=== PATIENT | male | born 1965 | race Caucasian/White ===

== ENCOUNTER 2018-09-02 11:22 | Inpatient (IN) | payer BC ==
[~2018-09-02] VITALS: Ht 172.7 cm; Wt 102.5 kg
[~2018-09-02 11:22] MED LIST: [UNRECOGNIZED DRUG - OTHER]
[2018-09-02] MEDS ORDERED: KETOROLAC TROMETHAMINE 30 MG/ML VIAL IV STA (11:45)
[2018-09-02 12:11] LABS: BASOPHILS % 0.2 % (0.0-1.0); EOSINOPHILS # (AUTO) 0.1 (0.0-0.4); EOSINOPHILS % 0.4 % (0.0-6.0); HEMATOCRIT 41.5 % (38.2-49.6); HEMOGLOBIN 14.2 g/dL (14.0-18.0); LYMPHOCYTES # (AUTO) 1.6 (1.0-3.2); LYMPHOCYTES % 13.3 % (18.0-39.1); MEAN CORPUSCULAR HEMOGLOBIN 31.8 pg (28-32); MEAN CORPUSCULAR HGB CONC 34.2 g/dL (31-35); MONOCYTES # (AUTO) 1.1 (0.2-0.8); MONOCYTES % 9.3 % (4.4-11.3); NEUTROPHILS # (AUTO) 9.1 (2.1-6.9); NEUTROPHILS % 76.5 % (38.7-80.0); PLATELET COUNT 230 x10e3/uL (140-360); RED BLOOD COUNT 4.46 x10e6/uL (4.3-5.7); RED CELL DISTRIBUTION WIDTH 12.5 % (11.7-14.4)
[2018-09-02 12:14] LABS: CLARITY,URINE SL CLOUDY (CLEAR); COLOR,URINE YELLOW (YELLOW); LEUKOCYTE ESTERASE ,URINE TRACE (NEGATIVE)
[2018-09-02 12:15] LABS: BILIRUBIN,URINE NEGATIVE (NEGATIVE); KETONES,URINE NEGATIVE (NEGATIVE); NITRITE,URINE NEGATIVE (NEGATIVE); PROTEIN,URINE DIPSTICK NEGATIVE (NEGATIVE); URINE UROBILINOGEN 0.2 mg/dL (0.2 - 1)
[2018-09-02 12:24] LABS: RBC,URINE 21-50 /HPF (0-5); WBC,URINE (MAN) 21-50 /HPF (0-5)
[2018-09-02 12:25] LABS: BACTERIA,URINE FEW /HPF; EPITHELIAL CELLS,URINE FEW /LPF
[2018-09-02 12:30] LABS: ANION GAP 11.8 mmol/L (8-16); CALCIUM 9.4 mg/dL (8.4-10.2); CREATININE, SERUM 1.44 mg/dL (0.72-1.25); POTASSIUM 3.8 mmol/L (3.5-5.1)
--- NOTE | 2018-09-02 13:17 | Diagnostic Imaging Report ---
EXAM: CT Abdomen and Pelvis without contrast INDICATION: Right flank pain, history of renal stones. COMPARISON: KUB 07/11/2010. TECHNIQUE: Abdomen and pelvis were scanned utilizing a multidetector helical scanner from the lung base to the pubic symphysis without IV or oral contrast. Coronal and sagittal reformations were obtained. Renal stone protocol was performed. COMPLICATIONS: None RADIATION DOSE: Total DLP: 702.4 mGy*cm Dose modulation, iterative reconstruction, and/or weight based adjustment of the mA/kV was utilized to reduce the radiation dose to as low as reasonably achievable. FINDINGS: LINES and TUBES: None. LOWER THORAX: There is a 4 mm calcified granuloma in the left lower lobe. Calcified left pericardiac lymph node. HEPATOBILIARY: No evidence of focal lesion. No biliary ductal dilation. GALLBLADDER: No radio-opaque stones or sludge. No wall thickening. SPLEEN: No splenomegaly. Calcified splenic granulomas. PANCREAS: No focal masses or ductal dilatation. ADRENALS: No adrenal nodules KIDNEYS/URETERS: There is moderate right hydronephrosis and hydroureter with an associated 7.5 mm right UVJ stone. Multiple other bilateral nonobstructing renal stones, for example, a 4 mm right mid pole stone on series 3, image 64, a 4 mm left mid pole renal stone on image 63, and a 4 mm left lower pole stone on image 75. There is perinephric stranding on the right. No left hydronephrosis. GI TRACT: No evidence of wall thickening or distension. Appendix is normal. PELVIC ORGANS/BLADDER: The bladder is partially decompressed and mildly thick-walled. Calcifications within the prostate. LYMPH NODES: No lymphadenopathy. VESSELS: Scattered minimal atherosclerotic calcifications. PERITONEUM / RETROPERITONEUM: No free air or fluid. BONES AND SOFT TISSUES: Bilateral L5 pars defects. Mild degenerative disc changes of the lumbar spine. Right-sided fat-containing inguinal hernia. CONCLUSION: Obstructing 7.5 mm right UVJ stone with associated moderate right hydronephrosis and hydroureter. Multiple other bilateral nonobstructing renal stones. Right perinephric stranding. Mildly thick-walled bladder may reflect partial decompression or may be infectious in etiology. Suggest correlation with urinalysis. Signed by: Dr. Jim Read MD on 09/02/2018 1:13 PM
[2018-09-02] MEDS: CEFTRIAXONE SOD 1 GM/NS 50 ML 50 ML IV SCH (14:31)
[2018-09-02] MEDS ORDERED: ONDANSETRON HCL INJ 2MG/ML 2ML 2 MG/ML VIAL IV PRN (15:15)
[2018-09-02] MEDS ORDERED: HYDROMORPHONE 1MG/1ML INJ IV PRN (15:15)
[2018-09-02] MEDS ORDERED: HYDROMORPHONE 2MG/ML 2 MG/ML ML IV PRN (15:30)
--- OUTSIDE RECORDS SUMMARY | 2018-09-02 15:36 | XMS REPORT ---
Author Author [facility] Address Unknown Phone Unavailable Care Team Providers Care Summer Analyst Name Role Phone Sita LOPEZ Unavailable Unavailable Problems This patient has no known problems. Allergies, Adverse Reactions, Alerts This patient has no known allergies or adverse reactions. Medications This patient has no known medications. Results Test Description Test Time Test Comments Text Results Atomic Results Result Comments CT ABDOMEN/PELVIS WO 2018-09-02 12:59:00 [place] [address] Patient Name: PAULO HOGAN MR #: [id number] : 1965 Age/Sex: 53/M Req #: [id number] Adm Physician: Ordered by: MEKA LOPEZ MD Report #: [id number] Location: ER Room/Bed: Procedure: [id number] CT/CT ABDOMEN/PELVIS WO Exam Date: 09/02/18 Exam Time: 1220 REPORT STATUS: Signed EXAM: CT Abdomen and Pelvis without contrast IN DICATION: Right flank pain, history of renal stones. COMPARISON: KUB 07/11/2010. TECHNIQUE: Abdomen and pelvis were scanned utilizing a multidetector helical scanner from the lung base to the pubic symphysis without IV or oral contrast. Coronal and sagittal reformations were obtained. Renal stone protocol was performed. COMPLICATIONS: None RADIATION DOSE: Total DLP: 702.4 mGy*cm Dose modulation, iterative reconstruction, and/or weight based adjustment of the mA/kV was utilized to reduce the radiation dose to as low as reasonably achievable. FINDINGS: LINES and TUBES: None. LOWER THORAX: There is a 4 mm calcified granuloma in the left lower lobe. Calcified left pericardiac lymph node. HEPATOBILIARY: No evidence of focal lesion. No biliary ductal dilation. GALLBLADDER: No radio-opaque stones or sludge. No wall thickening. SPLEEN: No splenomegaly. Calcified splenic granulomas. PANCREAS: No focal masses or ductal dilatation. ADRENALS: No adrenal nodules KIDNEYS/URETERS: There is moderate right hydronephrosis and hydroureter with an associated 7.5 mm right UVJ stone. Multiple other bilateral nonobstructing renal stones, for example, a 4 mm right mid pole stone on series 3, image 64, a 4 mm left mid pole renal stone on image 63, and a 4 mm left lower pole stone on image 75. There is perinephric stranding on the right. No left hydronephrosis. GI TRACT: No evidence of wall thickening or distension. Appendix is normal. PELVIC ORGANS/BLADDER: The bladder is partially decompressed and mildly thick- walled. Calcifications within the prostate. LYMPH NODES: No lymphadenopathy. VESSELS: Scattered minimal atherosclerotic calcifications. PERITONEUM / RETROPERITONEUM: No free air or fluid. BONES AND SOFT TISSUES: Bilateral L5 pars defects. Mild degenerative disc changes of the lumbar spine. Right-sided fat-containing inguinal hernia. CONCLUSION: Obstructing 7.5 mm right UVJ stone with associated moderate right hydronephrosis and hydroureter. Multiple other bilateral nonobstructing renal stones. Right perinephric stranding. Mildly thick-walled bladder may reflect partial decompression or may be infectious in etiology. Suggest correlation with urinalysis. Signed by: Dr. Dorina Yeh MD on 09/02/2018 1:13 PM Dictated By: DORINA YEH MD [id number] Transcribed By: CATRACHO on 09/02/18 1313 COPY TO: MEKA LOPEZ MD
--- NOTE | 2018-09-02 16:15 | NUR ---
RECD PT FROM ER VIA W/C AAOX3,DENIES PAIN AT THIS TIME,IVF INFUSING TO RT AC 20 GAUGE,HOB ELEVATED.CALL SHAH IN REACH.
[2018-09-02 16:34] VITALS: BP 165/84
[2018-09-02 16:52] VITALS: BP 165/84
[2018-09-02] MEDS ORDERED: ACETAMINOPHEN 325 MG TAB PO PRN (17:15)
[2018-09-02] MEDS ORDERED: DOCUSATE SODIUM 100 MG CAP PO PRN (17:15)
--- NOTE | 2018-09-02 17:15 | NUR ---
DR ARRIAZA HERE, ORDERS WRITTEN
--- NOTE | 2018-09-02 18:20 | NUR ---
PT UP IN BED DENIES PAIN NO DISTRESS NOTED,IVF INFUSING
--- NOTE | 2018-09-02 19:00 | NUR ---
Report and rounds completed. Patient in bed. Call light within reach. No issues or concerns. at bedside. Will continue to monitor.
--- NOTE | 2018-09-02 19:21 | Diagnostic Imaging Report ---
EXAMINATION: CHEST 2 VIEWS INDICATION: ^cough COMPARISON: None FINDINGS: PA and lateral views TUBES and LINES: None. LUNGS: Lungs are well inflated. Lungs are clear. There is no evidence of pneumonia or pulmonary edema. PLEURA: No pleural effusion or pneumothorax. HEART AND MEDIASTINUM: The cardiomediastinal silhouette is unremarkable. BONES AND SOFT TISSUES: No acute osseous lesion. Soft tissues are unremarkable. UPPER ABDOMEN: No free air under the diaphragm. IMPRESSION: No acute thoracic abnormality. Signed by: Dr. Sukhwinder Goff M.D. on 09/02/2018 7:18 PM
[2018-09-02 19:47] VITALS: BP 136/74
[2018-09-02 20:00] VITALS: BP 136/74
[2018-09-02] MEDS: METOPROLOL SUCCINATE 25 MG TAB XL PO SCH (21:45)
[2018-09-02] MEDS: SODIUM CHLORIDE 0.9% 1000ML 1,000 ML IV SCH ×2 (21:45→23:14)
[2018-09-02] MEDS: TAMSULOSIN HCL 0.4 MG CAP PO SCH (21:45)
[2018-09-02] MEDS: IBUPROFEN 400 MG TAB PO SCH (21:46)
[2018-09-02] MEDS ORDERED: ZOLOFT50 MG PO (21:57)
[2018-09-02] MEDS ORDERED: COUMADIN5 MG PO (21:57)
[2018-09-02] MEDS ORDERED: IMODIUM2 MG PO (21:57)
[2018-09-02] MEDS ORDERED: SPIRONOLACTONE25 MG PO (21:57)
[2018-09-02] MEDS ORDERED: BENADRYL25 M1 PO (21:57)
[2018-09-02] MEDS ORDERED: LASIX20 MG PO (21:57)
[2018-09-02] MEDS ORDERED: WARFARIN SODIUM3 MG PO (21:57)
[2018-09-02] MEDS ORDERED: NYSTATIN1 EAC2 TOP (21:57)
[2018-09-02] MEDS ORDERED: HYDROCORTISONE30 GM TOP (21:57)
[2018-09-02] MEDS ORDERED: CRANBERRY250 MG PO (21:57)
[2018-09-02] MEDS ORDERED: IBUPROFEN 200 MG TAB PO SCH (22:00)
--- NOTE | 2018-09-02 22:25 | NUR ---
Dr Fernandez contacted regarding Toprol xl, new orders received.
[2018-09-02 22:41] VITALS: BP 125/78
--- NOTE | 2018-09-02 22:41 | NUR ---
Tele placed on patient: SR 60. V/S 125/78, 61. Will continue to monitor.
[2018-09-02 23:55] VITALS: BP 137/69
[2018-09-03] VITALS (7 sets, daily range): BP systolic 131–141; BP diastolic 68–78
--- NOTE | 2018-09-03 | Consultation ---
DATE OF CONSULTATION: 09/02/2018 Urology Consultation REASON FOR CONSULTATION: Renal colic. HISTORY OF PRESENT ILLNESS: Dale Wayne is a 53-year-old man with a previous history of urolithiasis. The patient has had a previous stone in the past. He underwent what sounds like some sort of procedure that involved having some sort of pocket and he was told the stone should never recur once that was managed. He had a stent, which was eventually removed. He does not recall the hospital nor the urologist, who did that procedure, but apparently followup was not stressed to the patient. The patient has severe right-sided flank pain radiating to the right lower quadrant. Denies hematuria, dysuria, urinary tract infection. Denies any urinary incontinence. He reports nocturia x1. The patient's pain got severe enough that he reported to the emergency room and was evaluated and found to have obstructive ureterolithiasis and urological consultation was sought. PAST MEDICAL AND SURGICAL HISTORY: 1. Status post bilateral knee scopes. 2. Status post tonsillectomy. 3. Surgery as mentioned above. 4. Borderline hypercholesterolemia. ALLERGIES: NONE KNOWN. CURRENT MEDICATIONS: Please refer to the MAR. SOCIAL HISTORY: The patient smokes cigars once in a while. Denies smoking cigarettes. 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 FAMILY HISTORY: Noncontributory to the active urological problems. REVIEW OF SYSTEMS: Consistent with history of present illness and past medical history, otherwise negative for all systems. PHYSICAL EXAMINATION: GENERAL: A very pleasant 53-year-old man, sitting up in bed, in no apparent distress, enjoying the meal that was provided for him. The patient is currently afebrile. VITAL SIGNS: Currently stable. ABDOMEN: Soft, nondistended, nontender, except for some mild right-sided costovertebral angle tenderness. Kidneys are not palpable without hepatosplenomegaly. The patient is obese. GENITOURINARY: Testes are descended bilaterally. Testes and epididymides bilaterally palpably normal. The patient has a normal uncircumcised male phallus with normal meatus without any lesion. Digital rectal examination is deferred at the present time. For the remaining physical examination systems, please refer to the admission history and physical as well as the ERT sheet. LABORATORY STUDIES: CT scan of the abdomen and pelvis revealed a 7.5 mm at the right UVJ stone with right hydroureteronephrosis. There were multiple stones present bilaterally. Bladder wall was partially thick. Urine culture is pending. White blood cell count is elevated at 11,880. The patient's creatinine is elevated at 1.44. Urinalysis significant for microhematuria and pyuria. ASSESSMENT: 1. Right renal colic. 2. Right ureterolithiasis. 3. Bilateral nephrolithiasis. 4. Nocturia x1. 5. Right hydroureteronephrosis. 6. History of prior urolithiasis. 7. Obesity. 8. Leukocytosis. 9. Presumably acute renal failure. 10. Microhematuria. 11. Pyuria. PLANS: 1. IV hydration. 2. IV analgesia. 3. Intravenous antibiotics. 4. Straining of the urine at all times. 5. We will order KUB for the morning to see if the patient is passing a stone. 6. Should the patient fail to pass his stone, surgical intervention may be warranted. Thank you very much for involving us in the care of your patient. We will be happy to follow him along with you as well as an outpatient. Curtis MD Agnes OH/MODL /[id number] cc: Beti Weston MD
--- NOTE | 2018-09-03 00:15 | History and Physical ---
PRESENTING COMPLAINT: Intractable pain in the right flank off and on for the last 4 days, got worsened today along with dysuria. HISTORY OF PRESENT ILLNESS: A 53-year-old male, was admitted from ER. The patient was sent to ER from the office of his PCP, Dr. Juan David Hilliard. The patient tells that he started mild pain about his right flank area off and on since 4 days ago. Pain went away. Next day, he took some OTC Azo and along with enough fluid. His pain reoccurred day after the onset, also was controlled. About weekend, he felt okay. He went to the work today and started pain again. Pain was intractable. He had also dysuria along with this pain off and on. He denied any pressure bladder with urination. The patient had history of nephrolithiasis with hydronephrosis in 2010 when he had cystoscopy by Dr. Alarcon as per the patient's statement. He denies similar episodes since then. The patient also denied any fever, chest pain, shortness of breath, palpitation, and nausea, vomiting and diarrhea other than rectal bleeding at the present time. He tells that he was taking ibuprofen for his left knee sprain 3 weeks ago. He was not on any regular medications. He denied any history of diabetes, hypertension, or CAD. The patient described his right flank pain as dull, aching, persistent 10/10 at the height of intensity, localized without any radiation. REVIEW OF SYSTEMS: CONSTITUTIONAL: No fevers, chills, or rigors. EYES AND ENT: No nasal congestion. No sore throat. No visual disturbance. No earache. CARDIOVASCULAR: No chest pain, shortness of breath, or palpitation. PULMONARY: No cough. No hemoptysis. GI: Right flank pain as per HPI. No nausea or vomiting. No episode of bloody stool or black stool. : Dysuria as per HPI. No hematuria. MUSCULOSKELETAL/SKIN/LYMPHORETICULAR: Left knee pain status post sprain in the recent past, pain controlled now. No joint swelling. No skin rash. No swollen glands. NEUROLOGIC: No loss of consciousness, seizures, or headache. HISTORY OF PAST MEDICAL ILLNESS: Nephrolithiasis with hydronephrosis and hydroureter in 2010, status post cystoscopy as per the patient's statement. No history of hypertension, diabetes, CAD as per the patient's statement. HISTORY OF PAST SURGERY: Bilateral knee arthroscopic surgery for osteoarthritis. No other history of surgery. ALLERGIES: NO KNOWN MEDICATION ALLERGIES. HOME MEDICATIONS: The patient was not on any regular medication. He took [id number] ibuprofen and Azo recently for pain and dysuria as per the HPI. SOCIAL HISTORY: The patient lives at home with his family. He works with [employer] . HABITS: The patient denies smoking or other substance abuse history. He drinks alcohol socially as per his statement. FAMILY HISTORY: The patient's father is alive. He was recently diagnosed with lung cancer as per the patient's statement. The patient's mother is alive and healthy. His siblings does not have any history of CAD or nephrolithiasis. PHYSICAL EXAMINATION: VITAL SIGNS: Today, blood pressure 135/87, pulse 57, temperature 97.7, respirations 16, SPO2 99% on room air. GENERAL: Alert, lying in bed without any acute distress. Now pain controlled after medication. HEENT: NC/AT. No pallor. No icterus. Pupils equally reacting. Oral mucosa moist. NECK: No JVD. No carotid bruit. No lymphadenopathy. No thyromegaly. HEART: S1 and S2, regular. No murmur. LUNGS: Clear to auscultation. ABDOMEN: Soft, nontender. No palpable masses. Bowel sounds active in all quadrants. EXTREMITIES: No edema, cyanosis, or clubbing. NEUROLOGIC: Motor grossly equal on both sides. LABORATORY DATA: CBC, WBC 11.88, hemoglobin 14, hematocrit 41, platelet 230, MCV 93, RDW 12, neutrophil 76, lymphocytes 13. Chemistry panel sodium 137, potassium 3.8, chloride 104, CO2 of 25, anion gap 8, BUN 19, creatinine 1.44, glucose 91, calcium 9.4. Urinalysis negative for protein, glucose, ketone, blood 2+, nitrite negative, leukocyte esterase trace, wbc 21 to 50, rbc 21 to 50. MICROBIOLOGICAL DATA: Urine culture in progress. RADIOLOGICAL DATA: CT of the abdomen and pelvis with renal stone protocol without contrast, obstructive 7.5 mm right UPJ stone with associated moderate right hydronephrosis and hydroureter, mild [QAMARKER bladder may reflect partial decompression and may be infectious in etiology suggest previous infection. EKG, pending. ASSESSMENT AND PLAN: 1. Right flank pain with dysuria due to right ureteric stone with hydronephrosis. Continue IV hydration, IV antibiotics. Follow the urine culture. Nephrology consult is requested with Dr. Alarcon from ER, would follow his recommendation. 2. Leukocytosis. The patient is afebrile likely due to his urinary tract infection. He has CT suggestive of right perinephric stranding. Continue the patient on IV antibiotic. Follow the blood culture also. 3. Microscopic hematuria due to nephrolithiasis and ureterolithiasis. I would monitor for now. Continue IV antibiotics. Follow Urology recommendation. 4. Osteoarthritis by history. We will continue the patient on his regular medication. 5. DVT prophylaxis, SCD for now. GI prophylaxis, keep the patient on Pepcid IV for now. 6. Discharge plan would depend upon the patient's hospital course and Urology recommendation. MD SHELBI Hughes/ZONIA /[id number] TALHA
[2018-09-03] MEDS: IBUPROFEN 400 MG TAB PO SCH ×3 (05:00→21:34)
[2018-09-03 05:49] LABS: BASOPHILS % 0.1 % (0.0-1.0); EOSINOPHILS # (AUTO) 0.1 (0.0-0.4); EOSINOPHILS % 1.2 % (0.0-6.0); HEMATOCRIT 37.6 % (38.2-49.6); HEMOGLOBIN 13.4 g/dL (14.0-18.0); LYMPHOCYTES # (AUTO) 1.2 (1.0-3.2); MEAN CORPUSCULAR HEMOGLOBIN 32.4 pg (28-32); MEAN CORPUSCULAR HGB CONC 35.6 g/dL (31-35); MEAN CORPUSCULAR VOLUME 90.8 fL (81-99); MONOCYTES # (AUTO) 1.2 (0.2-0.8); MONOCYTES % 13.8 % (4.4-11.3); NEUTROPHILS % 70.5 % (38.7-80.0); PLATELET COUNT 199 x10e3/uL (140-360); RED BLOOD COUNT 4.14 x10e6/uL (4.3-5.7); RED CELL DISTRIBUTION WIDTH 12.6 % (11.7-14.4)
[2018-09-03 05:59] LABS: INR 0.93
--- NOTE | 2018-09-03 06:00 | NUR ---
Patient resting in bed, call light within reach. No issues or concerns. Will continue to monitor.
[2018-09-03 06:06] LABS: ALBUMIN 3.3 g/dL (3.5-5.0); ALBUMIN/GLOBULIN RATIO 1.3 (0.8-2.0); ANION GAP 7.9 mmol/L (8-16); CALCIUM 8.7 mg/dL (8.4-10.2); CREATININE, SERUM 1.73 mg/dL (0.72-1.25); MAGNESIUM 1.9 MG/DL (1.3-2.1); PHOSPHORUS 3.2 MG/DL (2.3-4.7); POTASSIUM 3.9 mmol/L (3.5-5.1)
[2018-09-03 06:29] LABS: THYROID STIMULATING HORMONE 3.507 uIU/mL (0.350-4.940)
--- NOTE | 2018-09-03 07:00 | NUR ---
RECEIVED AM REPORT FROM NURSE, PT WAS AWAKE IN BED, NO S/S OF DISTRESS. IV FLUIDS RUNNING AT R AC 20G
--- NOTE | 2018-09-03 08:04 | Diagnostic Imaging Report ---
EXAM: Abdomen 1 Views INDICATION: ^FOLLOW UP STONE. NOT PORTABLE. COMPARE TO CT. COMPARISON: CT abdomen and pelvis 09/02/2018. FINDINGS: Moderate amount of stool in the colon. No dilated loops of small bowel. Small bilateral renal stones remain present. 10 mm stone remains at the right UVJ junction. No abnormal soft tissue masses. Mild degenerative changes in the lumbar spine and pelvis. IMPRESSION: 1. Small bilateral renal stones remain present. 2. 10 mm stone remains at the right UVJ junction. Signed by: Dr. Sukhwinder Goff M.D. on 09/03/2018 8:00 AM
[2018-09-03] MEDS: SODIUM CHLORIDE 0.9% 1000ML 1,000 ML IV SCH ×2 (08:30→15:14)
[2018-09-03] MEDS: FAMOTIDINE 20 MG TAB PO SCH ×2 (08:55→15:40)
[2018-09-03] MEDS: METOPROLOL SUCCINATE 25 MG TAB XL PO SCH ×2 (08:56→21:33)
[2018-09-03] MEDS: CEFTRIAXONE SOD 1 GM/NS 50 ML 50 ML IV SCH (13:15)
--- NOTE | 2018-09-03 15:25 | NUR ---
Visit made by the Spiritual Care Department Pastoral Visitor, Wendy Miranda. PV provided pastoral presence, prayer, hospitality, and supportive listening. Pastoral Visitor informed pt/family of the scope of [facility] and availability. BRANDY DUKES Tape Edge Machine Operator Spiritual Care Department O: [phone] Pager: [phone] ([phone] calling from)
[2018-09-03] MEDS ORDERED: ONDANSETRON HCL 4 MG ORAL DISINTEGRATING TAB PO PRN (17:00)
--- NOTE | 2018-09-03 19:27 | NUR ---
Received patient in report. Patient ambulating around room at this time, steady gait noted. No pain reported. No S&S of distress noted at this time. Call light in reach.
[2018-09-03] MEDS: TAMSULOSIN HCL 0.4 MG CAP PO SCH (21:33)
[2018-09-04] VITALS (8 sets, daily range): BP systolic 120–154; BP diastolic 63–87
[2018-09-04] MEDS: SODIUM CHLORIDE 0.9% 1000ML 1,000 ML IV SCH ×3 (01:08→17:44)
--- NOTE | 2018-09-04 05:02 | NUR ---
PATIENT RESTING IN BED AT THIS TIME. NO PAIN REPORTED. NO S&S OF DISTRESS NOTED. REMINDED PATIENT WE STILL NEED TO STRAIN URINE. PATIENT VERBALIZED UNDERSTANDING. BED LOCKED IN LOWEST POSITION, SIDE RAILS UPX2, CALL LIGHT IN REACH.
[2018-09-04 06:06] LABS: BASOPHILS % 0.1 % (0.0-1.0); EOSINOPHILS # (AUTO) 0.1 (0.0-0.4); EOSINOPHILS % 1.8 % (0.0-6.0); HEMATOCRIT 35.6 % (38.2-49.6); HEMOGLOBIN 12.4 g/dL (14.0-18.0); LYMPHOCYTES # (AUTO) 1.3 (1.0-3.2); LYMPHOCYTES % 16.5 % (18.0-39.1); MEAN CORPUSCULAR HEMOGLOBIN 32.2 pg (28-32); MEAN CORPUSCULAR HGB CONC 34.8 g/dL (31-35); MEAN CORPUSCULAR VOLUME 92.5 fL (81-99); MONOCYTES # (AUTO) 0.9 (0.2-0.8); MONOCYTES % 12.1 % (4.4-11.3); NEUTROPHILS # (AUTO) 5.3 (2.1-6.9); NEUTROPHILS % 69.2 % (38.7-80.0); PLATELET COUNT 181 x10e3/uL (140-360); RED BLOOD COUNT 3.85 x10e6/uL (4.3-5.7); RED CELL DISTRIBUTION WIDTH 12.5 % (11.7-14.4)
[2018-09-04] MEDS: IBUPROFEN 400 MG TAB PO SCH ×3 (06:25→21:42)
[2018-09-04 06:49] LABS: ANION GAP 8.3 mmol/L (8-16); CALCIUM 8.7 mg/dL (8.4-10.2); CREATININE, SERUM 1.77 mg/dL (0.72-1.25); POTASSIUM 4.3 mmol/L (3.5-5.1)
[2018-09-04] MEDS: FAMOTIDINE 20 MG TAB PO SCH ×2 (07:30→16:10)
--- NOTE | 2018-09-04 07:40 | NUR ---
PATIENT IS AWAKE, ALERT, AND IN STABLE CONDITION WITH NO S/S OF RESPIRATORY DISTRESS. PATIENT DENIES PAIN. TELEMETRY APPLIED. PATIENT IS CURRENTLY NPO FOR PROCEDURE TODAY. CALL LIGHT IS WITHIN REACH, PATIENT INSTRUCTED TO CALL FOR ASSISTANCE NEEDED.
[2018-09-04] MEDS: METOPROLOL SUCCINATE 25 MG TAB XL PO SCH ×2 (09:00→21:27)
--- NOTE | 2018-09-04 12:26 | NUR ---
PATIENT OFF THE UNIT PER BED TO THE OR FOR CYSTOSCOPY. PATIENT IS IN STABLE CONDITION WITH NO S/S OF RESPIRATORY DISTRESS. TELEMETRY APPLIED.
[2018-09-04] MEDS ORDERED: IOPAMIDOL 610MG/1ML 300 MG/ML VIAL IV ONE (13:05)
[2018-09-04] MEDS ORDERED: BELLADONNA/OPIUM 60 MG SUPP PR ONE (13:05)
[2018-09-04] MEDS ORDERED: BELLADONNA/OPIUM 30 MG SUPP RC PRN (14:00)
[2018-09-04] MEDS ORDERED: BELLADONNA/OPIUM 60 MG SUPP PR PRN (14:00)
[2018-09-04] MEDS ORDERED: ACETAMINOPHEN/CODEINE 300MG - 30MG TAB PO PRN (14:00)
[2018-09-04] MEDS: CEFTRIAXONE SOD 1 GM/NS 50 ML 50 ML IV SCH (14:00)
--- NOTE | 2018-09-04 15:03 | NUR ---
REPORT RECEIVED FROM RECOVERY NURSE. PATIENT BACK ON THE UNIT - PATIENT IS AWAKE AND IN STABLE CONDITION WITH NO S/S OF RESPIRATORY DISTRESS. NO C/O PAIN. TELEMETRY APPLIED. CALL LIGHT IS WITHIN REACH, PATIENT INSTRUCTED TO CALL FOR ASSISTANCE NEEDED.
[2018-09-04] MEDS: OXYBUTYNIN CHLORIDE 5 MG TAB PO SCH ×2 (15:07→21:27)
[2018-09-04] MEDS: PHENAZOPYRIDINE HCL 100 MG TAB PO SCH (17:02)
[2018-09-04] MEDS ORDERED: DEXAMETHASONE SOD PHOS INJ 4 MG/ML VIAL ONE (18:13)
[2018-09-04] MEDS ORDERED: SEVOFLURANE INHAL SOLN 250 ML PEN BTL ONE (18:13)
[2018-09-04] MEDS ORDERED: ONDANSETRON HCL INJ 2MG/ML 2ML 2 MG/ML VIAL ONE (18:13)
[2018-09-04] MEDS ORDERED: LIDOCAINE HCL 2% LOCAL INJ 5 ML SDV VIAL INJ ONE (18:13)
[2018-09-04] MEDS ORDERED: PROPOFOL IV EMULSION 10 MG/ML 20 ML VIAL ONE (18:13)
--- NOTE | 2018-09-04 19:32 | NUR ---
PATIENT IS IN STABLE CONDITION WITH NO S/S OF RESPIRATORY DISTRESS. TELEMETRY APPLIED. CALL LIGHT IS WITHIN REACH, PATIENT INSTRUCTED TO CALL FOR ASSISTANCE NEEDED. BEDSIDE REPORT GIVEN TO ONCOMING NURSE.
--- NOTE | 2018-09-04 19:59 | NUR ---
PT IS RESTING IN BED. NO RESPIRATORY DISTRESS NOTED. BED IN THE LOWEST POSITION, LOCKED, AND CALL LIGHT WITHIN REACH. WILL CONTINUE TO MONITOR.
[2018-09-04] MEDS: TAMSULOSIN HCL 0.4 MG CAP PO SCH (21:27)
[2018-09-05] VITALS: BP 114/67
[2018-09-05] MEDS: SODIUM CHLORIDE 0.9% 1000ML 1,000 ML IV SCH ×2 (02:21→07:14)
[2018-09-05 04:00] VITALS: BP 131/65
[2018-09-05] MEDS: IBUPROFEN 400 MG TAB PO SCH (06:00)
[2018-09-05 06:12] LABS: BASOPHILS % 0.3 % (0.0-1.0); EOSINOPHILS # (AUTO) 0.1 (0.0-0.4); EOSINOPHILS % 2.1 % (0.0-6.0); HEMATOCRIT 34.7 % (38.2-49.6); HEMOGLOBIN 11.8 g/dL (14.0-18.0); LYMPHOCYTES # (AUTO) 1.7 (1.0-3.2); MEAN CORPUSCULAR HEMOGLOBIN 32.2 pg (28-32); MEAN CORPUSCULAR VOLUME 94.8 fL (81-99); MONOCYTES # (AUTO) 0.6 (0.2-0.8); MONOCYTES % 10.2 % (4.4-11.3); NEUTROPHILS # (AUTO) 3.3 (2.1-6.9); NEUTROPHILS % 57.1 % (38.7-80.0); PLATELET COUNT 189 x10e3/uL (140-360); RED BLOOD COUNT 3.66 x10e6/uL (4.3-5.7); RED CELL DISTRIBUTION WIDTH 12.8 % (11.7-14.4)
[2018-09-05 06:21] LABS: ALBUMIN/GLOBULIN RATIO 1.3 (0.8-2.0); ANION GAP 8.6 mmol/L (8-16); CALCIUM 8.8 mg/dL (8.4-10.2); CREATININE, SERUM 1.45 mg/dL (0.72-1.25); POTASSIUM 4.6 mmol/L (3.5-5.1)
[2018-09-05] MEDS: FAMOTIDINE 20 MG TAB PO SCH (07:30)
--- NOTE | 2018-09-05 07:51 | NUR ---
PATIENT IS AWAKE, AMBULATING IN HIS ROOM, AND IS IN STABLE CONDITION WITH NO S/S OF RESPIRATORY DISTRESS. NO PAIN VOICED. IV FLUIDS INFUSING. CALL LIGHT IS WITHIN REACH, PATIENT INSTRUCTED TO CALL FOR ASSISTANCE NEEDED.
[2018-09-05 07:52] VITALS: BP 140/60
[2018-09-05] MEDS: OXYBUTYNIN CHLORIDE 5 MG TAB PO SCH (08:27)
[2018-09-05] MEDS: PHENAZOPYRIDINE HCL 100 MG TAB PO SCH (08:27)
[2018-09-05] MEDS: METOPROLOL SUCCINATE 25 MG TAB XL PO SCH (09:00)
[2018-09-05 09:18] VITALS: BP 140/60
[2018-09-05 11:38] VITALS: BP 134/71
--- NOTE | 2018-09-05 12:59 | NUR ---
DR. NAGEL PAGED REGARDING D/C ORDER- AWAITING CALLBACK.
[2018-09-05] MEDS ORDERED: TYLENOL WITH C1 EACH PO (13:17)
[2018-09-05] MEDS ORDERED: DITROPAN XL5 MG PO (13:18)
[2018-09-05] MEDS ORDERED: PYRIDIUM100 MG (13:55)
[2018-09-05] MEDS ORDERED: FLOMAX0.4 MG PO (13:56)
[2018-09-05] MEDS ORDERED: COLACE100 MG PO (13:56)
--- NOTE | 2018-09-05 14:19 | NUR ---
PATIENT DISCHARGE HOME- PATIENT OFF THE UNIT AT 1418 PER AMBULATION ACCOMPANIED BY PCT TO THE FRONT OF THE LOBBY. PATIENT IS IN STABLE CONDITION WITH NO S/S OF RESPIRATORY DISTRESS. NO PAIN VOICED. IV REMOVED WITH TIP INTACT. DISCHARGE TEACHING, INSTRUCTIONS, AND MEDICATIONS GIVEN TO THE PATIENT. ALL PERSONAL ITEMS TAKEN WITH THE PATIENT.
[2018-09-05] MEDS ORDERED: MIDAZOLAM HCL 2 MG/2 ML VIAL ONE (18:48)
[2018-09-05] MEDS ORDERED: FENTANYL CITRATE/PF 100MCG/2 ML INJ ONE (18:48)
--- NOTE | 2018-09-11 15:24 | Discharge Summary ---
CONSULTATION: By Dr. Curtis Alarcon. PROCEDURE: Cystoscopy and stent placement in right ureter by Dr. Alarcon on 09/04/2018. FINAL DIAGNOSIS: Right flank pain with microscopic hematuria due to right ureteric stone with hydronephrosis, status post cystoscopy and stent placement during this hospitalization. OTHER DIAGNOSES: 1. Leukocytosis, resolved. 2. Microscopic hematuria due to ureteric stone. 3. Bilateral nephrolithiasis. 4. Osteoarthritis by history. 5. High blood pressure, normalized. BRIEF HOSPITAL COURSE: A 53-year-old male was admitted from ER. The patient was sent to ER from the office of Dr. Juan David Hilliard, the patient's PCP. The patient had right flank pain off and on for few days. On that day of admission, he felt severe pain while he was at work. He went to see Dr. Hilliard. In his office, he was referred to the ER. The patient was found having right ureteric stone with hydronephrosis. Dr. Alarcon, urologist was consulted. The patient had similar episode more than [address] Alarcon treated the patient medically. He did not have any improvement. His stone was still persisting at the right ureterovesical junction on repeat x-ray. Dr. Alarcon offered the patient cystoscopy, which was done. He put a stent in his right ureter. The patient tolerated the procedure well. He was otherwise uneventful. The patient was found having mild high blood pressure, which got normalized. The patient was not taking any blood pressure medication. He was otherwise was uneventful. The patient was discharged home with the instruction to follow up with urologist. He was hemodynamically stable at discharge. PHYSICAL EXAMINATION: VITAL SIGNS: BP 134/71, pulse 55, temperature 96.6, respiration 18, and SpO2 98 at room air. GENERAL: Alert, not in acute distress. HEENT: NC/AT. No pallor. No icterus. Oral mucosa moist. NECK: No JVD. No carotid bruit. No lymphadenopathy. No thyromegaly. HEART: S1 and S2. Regular. No murmur. LUNGS: Clear to auscultation. ABDOMEN: Soft and nontender. No palpable masses. Bowel sounds active in all quadrants. EXTREMITIES: No edema or cyanosis. NEUROLOGIC: Motor grossly equal on both sides. LABORATORY DATA: CBC; WBC 5.76, hemoglobin 11, hematocrit 34, platelet 189, MCV 94, RDW 12, neutrophils 57, and lymphocytes 30. PT 13 and INR 0.93. Chemistry panel; sodium 140, potassium 4.6, chloride 112, CO2 24, anion gap 4, BUN 22, creatinine 1.45, glucose 103, uric acid 5.7, calcium 8.8, phosphorus 3.2, and magnesium 1.9. Total bilirubin 0.3, AST 15, ALT 17, and alkaline phosphatase 40. Total protein 5.3, albumin 2.0, globulin 2.3, TSH 3.50, parathyroid hormone 19, PT 13, INR 0.93. Urinalysis at presentation negative for protein, glucose, ketone, nitrite, blood 2+, leukocyte esterase trace, wbc 21 to 50, rbc 21 to 50. MICROBIOLOGICAL DATA: Blood culture, no growth in 5 days. Urine culture, no growth. RADIOLOGICAL DATA: CT abdomen and pelvis at presentation without contrast, obstructive 7.5 mm right UVJ stone with associated moderate right hydronephrosis and hydroureter, right perinephric stranding, mildly thick walled bladder. X-ray abdomen and KUB, small bilateral renal stones, 10 mm stone remains in right UVJ junction. X-ray chest two views, no acute abnormality. MEDICATIONS: On discharge, please refer to med reconciliation sheet. DIET: Heart-healthy diet. ACTIVITY: As tolerated. INSTRUCTION AT DISCHARGE: Continue medications as per discharge recommendation. Follow up with Dr. Alarcon as available. Follow up with PCP, Dr. Juan David Hilliard in 1 week. Repeat CBC and CMP in 1 week. Plenty fluid intake advised. MD SHELBI Hughes/MODL /[id number]
== END 2018-09-05 14:22 | disposition home or self-care (01) | DRG 660 ==
LOC: ER 11:22 → ERHOLD 15:23 → MED/SURG3 16:13
PROVIDERS: ADMIT Internal Medicine; ATTEND Internal Medicine
PROC: 0TJB8ZZ Inspection of Bladder, Via Natural or Artificial Opening Endoscopic (ICD-10-PCS; principal; 2018-09-03)
PROC: 0T788DZ Dilation of Bilateral Ureters with Intraluminal Device, Via Natural or Artificial Opening Endoscopic (ICD-10-PCS; 2018-09-03)
DX: N13.30 Unspecified hydronephrosis (principal); N20.2 Calculus of kidney with calculus of ureter; N13.4 Hydroureter; N39.0 Urinary tract infection, site not specified; N17.9 Acute kidney failure, unspecified; R35.1 Nocturia
CPT/HCPCS: 36415; 71046; 74018; 74176; 74420; 80048; 80053; 81001; 83735; 83970; 84100; 84443; 84550; 85025; 85610; 87040; 87086; 88300; 93005; 96361; 99284; C1758; C2617; J0696; J1100; J1885; J2001; J2250; J2405; J7030

== ENCOUNTER → 2018-11-09 | Day surgery (SDC) | payer BC ==
--- NOTE | 2018-11-07 11:32 | Diagnostic Imaging Report ---
Abdomen, 1 view. History: Hematuria, stone. Comparison: 09/03/2018 Findings: A new right double-J internal ureteral stent is present. 4 to 5 mm calcifications are again seen projected over both kidneys, unchanged in appearance. Air is scattered throughout nondilated small and large bowel. There are no masses. The osseous structures are intact. IMPRESSION: Interval placement of right ureteral stent. Bilateral renal stones without change. Signed by: Jim Bartlett on 11/07/2018 11:28 AM
[~2018-11-09] MED LIST changes: +B&O 60MG R/S 60 MG SUPP PR ONE; +BENADRYL25 M1 PO; +CEFTRIAXONE SOD 1 GM/NS 50 ML 50 ML IV ONE; +COLACE100 MG PO; +COUMADIN5 MG PO; +CRANBERRY250 MG PO; +DEXAMETHASONE SOD PHOS INJ 4 MG/ML VIAL ONE; +DITROPAN XL5 MG PO; +FENTANYL CITRATE/PF 100MCG/2 ML INJ ONE; +FLOMAX0.4 MG PO; +HYDROCORTISONE30 GM TOP; +HYDROMORPHONE 2MG/ML 2 MG/ML ML ONE; +IMODIUM2 MG PO; +IOPAMIDOL 610MG/1ML 300 MG/ML VIAL IV ONE; +LASIX20 MG PO; +LIDOCAINE HCL 2% LOCAL INJ 5 ML SDV VIAL INJ ONE; +MIDAZOLAM HCL 2 MG/2 ML VIAL ONE; +NYSTATIN1 EAC2 TOP; +ONDANSETRON HCL INJ 2MG/ML 2ML 2 MG/ML VIAL ONE; +PROPOFOL IV EMULSION 10 MG/ML 20 ML VIAL ONE; +PYRIDIUM100 MG; +SEVOFLURANE INHAL SOLN 250 ML PEN BTL ONE; +SPIRONOLACTONE25 MG PO; +TYLENOL WITH C1 EACH PO; +WARFARIN SODIUM3 MG PO; +ZOLOFT50 MG PO
[2018-11-09 12:45] VITALS: BP 100/78
--- NOTE | 2019-01-09 08:27 | Operative Report ---
DATE OF PROCEDURE: 11/09/2018 SURGEON: Curtis Alarcon MD PREOPERATIVE DIAGNOSES: 1. Right ureterolithiasis. 2. Right indwelling ureteral stent. POSTOPERATIVE DIAGNOSES: 1. Right ureterolithiasis. 2. Right indwelling ureteral stent. OPERATIONS PERFORMED: 1. Cystourethroscopy with complicated removal of right indwelling ureteral stent (separate procedure performed with separate scope for the diagnosis and stent). 2. Right ureteroscopy (separate procedure performed to ensure no residual stones remain). 3. Interpretation of retrograde ureteropyelography. 4. Radiological services with supervision and interpretation of ureteroscopy. 5. Interpretation of retrograde ureteropyelography. 6. Supervision of fluoroscopy, no radiologist present. ANESTHESIA: General. COMPLICATIONS: None. CLINICAL SUMMARY: Dale Wayne is a 53-year-old man with urolithiasis. In August, he had acute renal failure, underwent a right ureteroscopy with laser of stone and insertion of stent. He was brought for the above procedures. He is aware of the risks of bleeding, infection, injury to adjacent structures, need for additional procedures and elected to proceed. The patient's prior radiology reports revealed a 4 to 5 mm stones present bilaterally. OPERATIVE PROCEDURE IN DETAIL: Informed consent verified. Dale Wayne was properly identified and taken to the operating room, placed on the cystoscopy table in supine position. Anesthesia was uneventfully begun. The patient was then carefully and gently repositioned in the dorsal lithotomy position with all pressure points well padded. His genitalia were prepared and draped in usual sterile fashion. The cystoscope sheath with visual obturator in place was atraumatically inserted into the patient's urethra. It was guided down the unremarkable distal urethra through some wide caliber, not clinically significant stricture and into the patient's prostate bed, which was significant for very early BPH. We entered the patient's bladder. We identified a stent emerging from the right ureteral orifice and guidewire was then placed alongside of the stent and guided to the level of the patient's kidney. The stent was then grasped completely, removed and discarded. Semi-rigid ureteroscope was then placed alongside of the guidewire and guided into the distal ureter. No stones were identified. Contrast was injected. Flexible ureteroscope was then placed over the guidewire and guided to the level of the patient's kidney. Panendoscopy of the intrarenal collecting system revealed Otto's plaques throughout the papilla, but no stones were identified. The stones noted on CT appeared to be Otto's plaques within the right kidney. We carefully reexamined the ureters as we exited, revealing no strictures, no tumors, no stones. Interpretation of retrograde ureteropyelography contrast was instilled in a retrograde fashion via the ureteroscope on the right-hand side. There was some fullness of the collecting system, most likely related to a long of stent extent, but there were no filling defects. No evidence of obstruction. Unobstructed drainage was observed fluoroscopically. The patient's bladder was drained. Cystoscope was withdrawn. A belladonna and opium suppositories were placed revealing a 25 g prostate, smooth, nonfluctuant without any nodules. The patient was then uneventfully reversed from anesthesia and taken to recovery in stable condition. There were no complications to the procedure. The patient tolerated the procedure well. Explicit postop instructions were given. We will plan on returning the patient to the operating room for left ESWL as well as managing the patient's left-sided stone burden. Curtis Alarcon MD [place]/[facility] /[id number]
== END | disposition home or self-care (01) ==
LOC: OR 09:00
PROVIDERS: ATTEND Urology
DX: N20.1 Calculus of ureter (principal); Z46.6 Encounter for fitting and adjustment of urinary device; N28.89 Other specified disorders of kidney and ureter; N40.0 Benign prostatic hyperplasia without lower urinary tract symptoms; N32.81 Overactive bladder; R35.1 Nocturia; E66.9 Obesity, unspecified; Z01.810 Encounter for preprocedural cardiovascular examination; Z01.818 Encounter for other preprocedural examination; Z68.31 Body mass index [BMI] 31.0-31.9, adult
CPT/HCPCS: 52351; 74018; 74420; 93005; J0696; J1100; J1170; J2001; J2250; J2405; J2704; J3010; Q9967

== ENCOUNTER → 2018-12-27 | Day surgery (SDC) | payer BC ==
--- NOTE | 2018-12-17 12:31 | Diagnostic Imaging Report ---
EXAM: ABDOMEN-1VIEW ([facility]) DATE: 12/17/2018 11:50 AM INDICATION: Renal stone, preoperative evaluation COMPARISON: 11/07/2018 FINDINGS: The previously identified right double-J ureteral stent is no longer present. There are stable appearing bilateral subcentimeter calcifications projecting over the renal shadows. Bowel gas pattern appears nonobstructive/nondilated. No acute osseous abnormalities identified. IMPRESSION: Stable appearing small bilateral renal stones. Signed by: Dr. Arnaldo Corral MD on 12/17/2018 12:28 PM
[~2018-12-27] MED LIST changes: -B&O 60MG R/S 60 MG SUPP PR ONE; -HYDROMORPHONE 2MG/ML 2 MG/ML ML ONE; -IOPAMIDOL 610MG/1ML 300 MG/ML VIAL IV ONE
[2018-12-27 16:15] VITALS: BP 166/90
--- NOTE | 2019-02-11 05:34 | Operative Report ---
DATE OF PROCEDURE: 12/27/2018 SURGEON: Curtis Alarcon MD PREOPERATIVE DIAGNOSIS: Left nephrolithiasis. POSTOPERATIVE DIAGNOSIS: Left nephrolithiasis. OPERATIONS PERFORMED: 1. Staged left-sided extracorporeal shock wave lithotripsy. 2. Supervision of fluoroscopy, no radiologist present. ANESTHESIA: General. COMPLICATIONS: None. CLINICAL SUMMARY: Dale Wayne is a 53-year-old man with nephrolithiasis. He is brought for the above procedure. He is aware of the risks of bleeding, infection, injury to adjacent structures, need for additional procedures, and elected to proceed. OPERATIVE PROCEDURE IN DETAIL: Informed consent was verified. Dale Wayne was properly identified, taken to the operating room, and placed on the lithotripsy table in supine position. Anesthesia was uneventfully begun. The patient's left nephrolithiasis was localized with biplanar fluoroscopy. A total of 3000 shocks were delivered distributing them between the 2 regions of stones. Excellent fragmentation was noted. The patient was then uneventfully reversed from anesthesia and taken to recovery room in stable condition. There were no complications of the procedure. He tolerated the procedure well. Explicit postop instructions were given. We will follow the patient up in the office as well as on an indefinite basis. Curtis Alarcon MD [place]/[facility] /[id number] cc: Leti Hilliard MD
== END | disposition home or self-care (01) ==
LOC: OR 12:43
PROVIDERS: ATTEND Urology
DX: N20.0 Calculus of kidney (principal); E66.9 Obesity, unspecified
CPT/HCPCS: 50590; 74018; J0696; J1100; J2001; J2250; J2405; J2704; J3010

== ENCOUNTER → 2023-08-10 | Outpatient (REF) | payer BC ==
[~2023-08-10] MED LIST changes: -CEFTRIAXONE SOD 1 GM/NS 50 ML 50 ML IV ONE; -DEXAMETHASONE SOD PHOS INJ 4 MG/ML VIAL ONE; -FENTANYL CITRATE/PF 100MCG/2 ML INJ ONE; +FUROSEMIDE INJ 10 MG/ML 4 ML VIAL ONE; -LIDOCAINE HCL 2% LOCAL INJ 5 ML SDV VIAL INJ ONE; -MIDAZOLAM HCL 2 MG/2 ML VIAL ONE; -ONDANSETRON HCL INJ 2MG/ML 2ML 2 MG/ML VIAL ONE; -PROPOFOL IV EMULSION 10 MG/ML 20 ML VIAL ONE; -SEVOFLURANE INHAL SOLN 250 ML PEN BTL ONE
== END ==
LOC: NM 08:23
PROVIDERS: ATTEND Internal Medicine
DX: N20.0 Calculus of kidney (principal)
CPT/HCPCS: 76870; 78708; 93976; A9562; J1940